=== PATIENT | female | born 1965 | race Caucasian/White ===

== ENCOUNTER → 2016-12-03 | Outpatient (CLI) | payer BC ==
--- NOTE | 2016-12-03 14:21 | MAMMOGRAPHY REPORT ---
UNILATERAL LEFT DIGITAL DIAGNOSTIC MAMMOGRAM TOMOSYNTHESIS WITH CAD AND TARGETED LEFT ULTRASOUND: CLINICAL HISTORY: Patient presents for follow-up in the left breast. She is status post surgical ex cision in the 11:00 left breast in which atypical ductal hyperplasia was diagnosed at core needle bi opsy. A second biopsy in the 9:00 left breast was benign. Patient also underwent bilateral breast MRI earlier today. TECHNIQUE: Left breast tomosynthesis in addition to standard 2D mammography was performed. Current fito agee was also evaluated with a Computer Aided Detection (CAD) system. COMPARISON: Comparison is made to exams dated: 05/27/2016 mammogram, 11/27/2015 mammogram, 05/24/2015 m ammogram, 05/18/2015 mammogram, and 11/25/2013 mammogram - [facility]. BREAST COMPOSITION: The tissue of the left breast is heterogeneously dense, which may obscure small masses. FINDINGS: There is expected focal architectural distortion in the 11:00 middle one third of the left breast, at the site of surgical excisional biopsy. A stable metallic biopsy marker is seen in the 9:00 middle one third of the left breast. There are stable benign rim calcifications and stable sca ttered and grouped benign-appearing round microcalcifications. No new suspicious mass, architectura l distortion or cluster of microcalcifications is seen. Targeted ultrasound was performed in the lower outer quadrant and upper inner quadrant of the right breast for findings seen on recent breast MRI. Please refer to a separate report for full detail. Within the right 12:00 breast, 2 cm from the nipple, there is a small cyst cluster measuring 4.8 x 9 .2 mm. A round anechoic simple cyst is identified in the 1:00 right breast measuring 4.5 mm. Anoth er anechoic oval parallel cyst is identified in the 9:00 right breast. An oval parallel circumscrib ed hypoechoic cystic-appearing mass is seen in the 7:00 right breast, 4 cm from the nipple, measurin g 7.4 x 3.3 x 6.6 mm. In anechoic simple cyst is present in the 7:00 right breast, 2 cm from the ni pple, measuring 5 mm. No suspicious sonographic mass or other sonographic abnormality is seen in th e visualized right breast to correlate with the MRI findings. Therefore, a short interval follow-up breast MRI is recommended to ensure stability in 6 months. Annual bilateral mammography is also du e at that time. IMPRESSION: ACR-BI-RADS CATEGORY 3: PROBABLY BENIGN, TARGETED ULTRASOUND ACR-BI-RADS CATEGORY 3: RI OBABLY BENIGN 1. There is no suspicious sonographic correlate for the MRI findings in the right lower outer and u pper inner quadrant. These findings could be within the range a background or represent benign fibr ocystic changes. Nevertheless, a short interval follow-up breast MRI is recommended to ensure stabi lity in 6 months. 2. Stable mammographic appearance of the left breast, without mammographic evidence of malignancy. Annual bilateral mammography is due in 6 months, and recommend remaining a diagnostic patient in ca se any additional spot magnification views and/or ultrasound are needed at that time. These results and recommendations were discussed with the patient at the time of the exam. She tent atively scheduled the follow-up appointments prior to leaving our department. Approximately 10% of breast cancers are not detected with mammography. A negative mammographic repor t should not delay biopsy if a clinically suggestive mass is present. Alva Noriega M.D. ay/:12/03/2016 13:56:31 Admissions Advisor: Celsa Cavazos RT(R)(M), [facility] letter sent: Follow Up Recommended 3 BI-RADS Code: ACR-BI-RADS Category 3: Probably Benign Ultrasound BI-RADS: ACR-BI-RADS Category 3: P robably Benign
== END | disposition home or self-care (01) ==
LOC: C.MAMM 09:56
PROVIDERS: ATTEND Surgery
DX: Z09 Encounter for follow-up examination after completed treatment for conditions other than malignant neoplasm (principal); N60.92 Unspecified benign mammary dysplasia of left breast

== ENCOUNTER → 2016-12-03 | Outpatient (CLI) | payer BC ==
[~2016-12-03] MED LIST: GADAVIST IV PRN
--- NOTE | 2016-12-05 14:17 | MAMMOGRAPHY REPORT ---
BREAST MRI OF BOTH BREASTS : 12/03/2016 CLINICAL HISTORY: 51-year-old woman with biopsy-proven left breast atypia status post surgical excis ion. She presents for additional screening. COMPARISON: Comparison is made to exams dated: 12/03/2016 ultrasound, 12/03/2016 mammogram, 05/27/2016 mammogram, 01/15/2016 mammogram, 01/15/2016 stereotactic biopsy, and 12/12/2015 mammogram - [facility]. TECHNIQUE: Using a 1.5 [place] magnet and dedicated breast coil, multisequence axial images were [place] through the breasts. After uneventful IV administration of 9 mL of Gadavist, dynamic multiphase contrast-enhanced axial images, and sagittal postcontrast were obtained. Temporal subtraction axia l images and 3-D MIP images are provided. Everything was then reviewed on a 3-D workstation, [email or web address]. FINDINGS: Right breast: There is moderate background parenchymal enhancement. There are several scattered T2 hyperintense cysts. Although there is diffuse background enhancement, there is conspicuous 4.2 x 5. 9 x 4.6 mm focus of enhancement in the lower outer anterior right breast with associated mixed persi stent, plateau and a small amount of washout kinetics. Corresponding T2-weighted sequence is isoint ense. Targeted ultrasound is recommended. Another conspicuous focus of enhancement is seen in the upper inner anterior right breast measuring 4.5 mm, with corresponding T2 isointensity. Mixed persi stent and plateau kinetics. Targeted ultrasound is also recommended in this location. No other con spicuous focus of enhancement, suspicious enhancing mass or architectural distortion is identified. There is no skin thickening or nipple retraction. No suspicious right axillary lymphadenopathy. Left breast: There is moderate background parenchymal enhancement. There are several scattered T2 h yperintense cysts. There is expected architectural distortion in the 11:00 left breast at the site of prior surgical excision for atypia diagnostic core needle biopsy. No conspicuous non-mass enhanc ement or focus of enhancement is identified throughout the left breast, given the degree of backgrou nd enhancement. No suspicious enhancing mass or unexpected architectural distortion is seen. No fo giancarlo skin thickening or nipple retraction. No left axillary lymphadenopathy. IMPRESSION: ACR-BI-RADS CATEGORY 3: PROBABLY BENIGN 1. There are 2 foci of enhancement that are increased in conspicuity from the moderate background e nhancement of the right breast, within the upper inner and lower outer quadrants, for which further characterization with targeted ultrasound is recommended. (This was subsequently performed during t he diagnostic mammogram/ultrasound on the same day and please refer to a separate report for full de tail). Subsequently, no suspicious sonographic abnormalities were identified to correspond to the M RI findings and therefore a short interval follow-up breast MRI is recommended. 2. Moderate background parenchymal enhancement of the left breast with stable postsurgical changes in the upper inner quadrant. No definite MRI evidence of malignancy within the left breast. 3. No suspicious axillary lymphadenopathy bilaterally. The patient has been verbally notified of the results. Alva Noriega M.D. ay/:12/04/2016 23:40:03 Engineer Sergeant: wood gouger, [facility] letter sent: Follow Up Recommended 3 BI-RADS Code: ACR-BI-RADS Category 3: Probably Benign
== END | disposition home or self-care (01) ==
LOC: C.MRI 07:34
PROVIDERS: ATTEND Surgery
DX: Z12.39 Encounter for other screening for malignant neoplasm of breast (principal); N60.92 Unspecified benign mammary dysplasia of left breast; N62 Hypertrophy of breast; Z98.890 Other specified postprocedural states

== ENCOUNTER → 2017-06-04 | Outpatient (CLI) | payer BC ==
--- NOTE | 2017-06-05 15:42 | MAMMOGRAPHY REPORT ---
BILATERAL DIGITAL DIAGNOSTIC MAMMOGRAM TOMOSYNTHESIS WITH CAD: 06/04/2017 CLINICAL HISTORY: 51-year-old woman with a personal history of left breast atypia diagnosed at needle biopsy status post surgical excisional biopsy. She presents for annual bilateral screening exam and concurrently reassessing findings on MRI. TECHNIQUE: Bilateral breast tomosynthesis in addition to standard 2D mammography was performed. Spot magnification left CC and ML views were also performed near the surgical site to assess for a small 3 mm triangular focus of enhancement seen on the MRI performed prior to this exam on the same day. C urrent study was also evaluated with a Computer Aided Detection (CAD) system. COMPARISON: Comparison is made to exams dated: 12/03/2016 mammogram, 05/27/2016 mammogram, 11/27/2015 m ammogram, 05/24/2015 mammogram, 05/18/2015 mammogram, and 11/25/2013 mammogram - [facility]. BREAST COMPOSITION: The tissue of both breasts is heterogeneously dense, which may obscure small mas ses. FINDINGS: There is expected architectural distortion in the 12:00 to 1:00 anterior left breast, at th e site of prior excisional biopsy. A linear scar marker overlies the 12:00 anterior left breast. Th ere are benign rim calcifications and punctate microcalcifications scattered bilaterally. With parti cular attention to the spot magnification views near the surgical site, there are stable benign-appea ring round and punctate microcalcifications. Grouped microcalcifications are seen slightly lateral a nd medial to the center of the distortion. These appear similar to prior spot magnification views. Currently no new suspicious grouping or cluster of microcalcifications are seen. Overall, no obvious new mass, unexpected architectural distortion or new calcifications are seen bilaterally. There is a circumscribed oval 10 x 7 mm mass in the middle one third of the right breast, just below the poste rior nipple line on the MLO view, which most likely correlates with a dominant cyst seen on concurren t MRI. IMPRESSION: ACR-BI-RADS CATEGORY 3: PROBABLY BENIGN 1. Stable mammographic appearance of the breasts, including postsurgical changes in the left breast. There is no definite mammographic evidence of malignancy. Would recommend bilateral mammography in cluding tomosynthesis images and repeat spot magnification views in 12 months. 2. A short interval follow-up breast MRI is recommended in 6 months, for new bilateral breast findin gs described on the MRI report performed on the same day. These results and recommendations were discussed with the patient at the time of the exam. Approximately 10% of breast cancers are not detected with mammography. A negative mammographic report should not delay biopsy if a clinically suggestive mass is present. Alva Noriega M.D. ay/:06/05/2017 15:04:36 Customs Collector: Celsa DELCID(Ling)(Rebecca), [facility] letter sent: Follow Up Recommended 3 BI-RADS Code: ACR-BI-RADS Category 3: Probably Benign
== END | disposition home or self-care (01) ==
LOC: C.MAMM 09:05
PROVIDERS: ATTEND Family Medicine
DX: Z12.31 Encounter for screening mammogram for malignant neoplasm of breast (principal); R92.8 Other abnormal and inconclusive findings on diagnostic imaging of breast

== ENCOUNTER → 2017-06-04 | Outpatient (CLI) | payer BC ==
--- NOTE | 2017-06-05 12:10 | MAMMOGRAPHY REPORT ---
BREAST MRI OF BOTH BREASTS : 06/04/2017 CLINICAL HISTORY: 51 year old woman with a personal history of left breast atypia presents to follow up enhancing foci in the right upper inner and lower outer quadrants. COMPARISON: Comparison is made to exams dated: 12/03/2016 ultrasound, 12/03/2016 mammogram, 12/03/2016 breast MRI, 05/27/2016 mammogram, 01/15/2016 mammogram, and 01/15/2016 stereotactic biopsy - [facility]. TECHNIQUE: Using a 1.5 [place]wyn magnet and dedicated breast coil, multisequence axial images were obtain ed through the breasts. After uneventful IV administration of 9.5 mL of Gadavist, dynamic multiphase contrast-enhanced axial images, and sagittal postcontrast were obtained. Temporal subtraction axial images and 3-D MIP images are provided. Everything was then reviewed on a 3-D workstation, [employer]. FINDINGS: Right breast: There is mild to moderate background parenchymal enhancement. There are several scatte red T2 hyperintense nonenhancing cysts in the right breast. The largest measuring 11 mm is identifie d in the central retroareolar breast. The previously described 0.6 mm focus of enhancement in the up per inner anterior right breast is decreased in size and conspicuity comparing to the prior MRI. It is currently identified on image 67/116 and measures 3.6 mm. The previously described 4.2 x 5.9 mm e nhancing focus in the lower outer quadrant of the right breast is no longer identified, confirming be nignity. However, the most conspicuous focus of enhancement in the right breast is identified in the 6:00 middle one third of the breast measuring 3.7 mm and demonstrates mixed plateau and washout kine tics (best seen on axial patient on 5/116). Given the fluctuation of the other enhancing foci, this is likely within the range of background. However, repeat attention at follow-up in 6 months is heriberto mmended to ensure stability. There is no evidence of a suspicious enhancing mass, suspicious non-mas s enhancement or focal area of architectural distortion in the right breast. No focal skin thickenin g or nipple retraction. No suspicious right axillary, subpectoral or internal mammary lymphadenopath y. Left breast: There is mild to moderate background parenchymal enhancement. There are several scatter ed T2 hyperintense nonenhancing cysts in the left breast. The largest cyst measuring 11 mm is identi fied in the 3:00 posterior left breast. There is expected architectural distortion from prior excisi onal biopsy in the 1:00 anterior left breast. There is a 3.1 mm triangular focus of enhancement with in the area of distortion that is minimally more conspicuous compared to the prior MRI. This is best seen on image 51/116 and demonstrates persistent kinetics. Although this probably represents backgr ound enhancement given differences in technique, additional spot magnification views are recommended to assess for the possibility of new microcalcifications near the surgical site. No other new suspic ious enhancing mass, non-mass enhancement or suspicious kinetics are identified in the left breast. No focal skin thickening or nipple retraction. No suspicious left axillary, subpectoral or internal mammary lymphadenopathy. IMPRESSION: ACR-BI-RADS CATEGORY 3: PROBABLY BENIGN 1. There are fluctuating enhancing foci in the right breast. The previously described conspicuous f oci in the upper inner quadrant, and lower outer quadrant are less prominent or completely resolved, confirming benignity. A 3.6 mm focus of enhancement currently seen in the 6:00 right breast is proba ronny within the range of background, but it demonstrates indeterminate kinetics. Therefore, a short i nterval follow-up breast MRI is recommended to ensure stability in 6 months. 2. There is expected architectural distortion in the 1:00 anterior left breast from prior surgical e xcision. There is a prominent 3 mm triangular focus of enhancement within the distortion that could be within the range of background, but it is minimally more conspicuous compared to the prior MRI. A dditional spot magnification views will be performed on the concurrent mammograms to assess for any n ew microcalcifications. If there is no mammographic change, a short interval follow-up breast MRI is recommended to ensure stability in 6 months. 3. No suspicious axillary, subpectoral or internal mammary lymphadenopathy bilaterally. These results and recommendations were discussed with the patient at the time of diagnostic mammogram performed on the same day. Alva Noriega M.D. ay/:06/04/2017 22:14:45 Olive Grower: supervisor loading, [facility] letter sent: Follow Up Recommended 3 BI-RADS Code: ACR-BI-RADS Category 3: Probably Benign
== END | disposition home or self-care (01) ==
LOC: C.MRI 06:39
PROVIDERS: ATTEND Family Medicine
DX: R92.8 Other abnormal and inconclusive findings on diagnostic imaging of breast (principal); Z12.39 Encounter for other screening for malignant neoplasm of breast

== ENCOUNTER → 2017-12-08 | Outpatient (CLI) | payer OTHER ==
--- NOTE | 2017-12-09 14:38 | MAMMOGRAPHY REPORT ---
BREAST MRI OF BOTH BREASTS : 12/08/2017 CLINICAL HISTORY: 52-year-old woman with a personal history of left breast atypia status post surgica l excision. A second stereotactic biopsy of microcalcifications in the left breast yielded benign pa thology results. Patient presents for a follow-up breast MRI to ensure stability of enhancing foci i n the right breast and near the surgical site in the left breast. COMPARISON: Comparison is made to exams dated: 06/04/2017 mammogram, 06/04/2017 breast MRI, 12/03/2016 ultrasound, 12/03/2016 mammogram, 12/03/2016 breast MRI, and 05/27/2016 mammogram - [facility]. TECHNIQUE: Using a 1.5 [place]wyn magnet and dedicated breast coil, multisequence axial images were obtain ed through the breasts. After uneventful IV administration of 9.5 mL of Gadavist, dynamic multiphase contrast-enhanced axial images, and sagittal postcontrast were obtained. Temporal subtraction axial images and 3-D MIP images are provided. Everything was then reviewed on a 3-D workstation, [employer]. FINDINGS: Right breast: There is mild background parenchymal enhancement of the right breast. There are diffus e fibrocystic changes of the right breast, with numerous scattered T2 hyperintense nonenhancing cysts that demonstrate a thin perceptible rim of enhancement. The largest oval cyst is identified in the middle one third of the retroareolar right breast measuring 11 mm (image 41/58). Foci of enhancement previously identified in the lower outer quadrant of the right breast are no longer seen, confirming benignity. A focus of enhancement in the upper inner anterior right breast appears stable when comp ared to the 06/04/2017 MRI but less prominent comparing to the 12/03/2016 MRI, also likely benign. A gain noted is a small focus of enhancement in the 6:00 middle one third of the right breast measuring 4.0 x 3.6 mm (axial page 96/122, sagittal page 105/132), that demonstrates mixed persistent, plateau and washout kinetics and does not appear visually changed since 06/04/2017. Prior measurements in t he same plane were 3.7 x 4.4 mm. Although this most likely represents a benign enhancing focus given 6 months of stability, it remains conspicuous and another 12 month follow-up breast MRI is recommend ed to ensure longer stability. No other new suspicious enhancing mass, non-mass enhancement, suspici ous kinetics or architectural distortion are identified in the right breast. No focal skin thickenin g or nipple retraction. No suspicious right axillary lymphadenopathy. Left breast: There is mild background parenchymal enhancement of the left breast. Diffuse fibrocysti c changes of the left breast with numerous T2 hyperintense, nonenhancing cysts. The largest cyst in the left breast is identified in the 3:00 posterior breast, measuring 9 mm. There is focal program architect ural distortion in the anterior left breast currently approximate 11 o'clock position. This was prev iously described as 12:00 and 1:00, based on prior mammograms and MRIs. There is no longer a triangu lar focus of enhancement in the area of architectural distortion, confirming the benignity of this fi nding. Currently, there is no suspicious enhancing mass, non-mass enhancement, unexpected architectu ral distortion or suspicious kinetics in the left breast. No focal skin thickening or nipple retract ion. No suspicious left axillary lymphadenopathy. Note is made of mild platelike atelectasis in the visualized dependent right lung. IMPRESSION: ACR-BI-RADS CATEGORY 3: PROBABLY BENIGN 1. No abnormal enhancement within an area of architectural distortion in the 11:00 anterior right br east, representing a surgical excisional biopsy performed for atypia diagnosed at stereotactic core n eedle biopsy. The interval resolution of this finding confirms benignity. No new suspicious enhanci ng mass or abnormal enhancement is identified in the left breast. 2. Persistent yet unchanged 3.6 x 4.0 mm focus of enhancement in the 6:00 right breast. Given 6 mon ths of stability this is most likely benign but another 12 month follow-up breast MRI is recommended to ensure longer stability. No other new suspicious enhancing masses or non-mass enhancement identif ied in the right breast. 3. Based on prior diagnostic mammogram reports, bilateral diagnostic mammograms are recommended in J braxton 2018. The patient will receive written notification of the results. Alva Noriega M.D. ay/:12/08/2017 21:16:57 Lead Care Manager: manager of photography, [facility] letter sent: Follow Up Recommended 3 BI-RADS Code: ACR-BI-RADS Category 3: Probably Benign
== END | disposition home or self-care (01) ==
LOC: C.MRI 06:31
PROVIDERS: ATTEND Surgery
DX: R92.8 Other abnormal and inconclusive findings on diagnostic imaging of breast (principal)

== ENCOUNTER → 2018-06-09 | Outpatient (CLI) | payer OTHER ==
--- NOTE | 2018-06-09 16:19 | MAMMOGRAPHY REPORT ---
BILATERAL DIGITAL DIAGNOSTIC MAMMOGRAM TOMOSYNTHESIS WITH CAD: 06/09/2018 CLINICAL HISTORY: 52-year-old woman with biopsy-proven atypia in the left breast, status post surgica l excision. A second stereotactic biopsy performed in the left breast yielded benign pathology result s. She presents at time of annual bilateral screening exam. TECHNIQUE: The study was acquired using full field digital technology and interpreted from soft copy. Breast tomosynthesis in addition to standard 2D mammography was performed. Current study was also ev aluated with a Computer Aided Detection (CAD) system. COMPARISON: Comparison is made to exams dated: 06/04/2017 mammogram, 12/03/2016 mammogram, 05/27/2016 m ammogram, 01/15/2016 mammogram, 12/12/2015 mammogram, and 11/27/2015 mammogram - [facility]. BREAST COMPOSITION: The tissue of both breasts is heterogeneously dense, which may obscure small mass es. FINDINGS: A linear scar marker overlies the upper outer quadrant of the left breast. There is expect ed architectural distortion at the surgical site in the approximate 11:00 left breast, denoting the s urgical excision site. There is a stable metallic biopsy marker clip in the medial left breast. Sca ttered benign rim calcifications and punctate microcalcifications bilaterally in addition to a few st able faint groupings of punctate microcalcifications. No new suspicious masses, suspicious calcifica tions, asymmetries or unexpected architectural distortion is identified bilaterally. Recommend bilateral diagnostic mammography in 12 months, given heterogeneously dense breasts, multipl e calcifications and personal history of atypia. Patient is also due for follow-up breast MRI in Nov. IMPRESSION: ACR BI-RADS CATEGORY 2: BENIGN 1. Stable bilateral mammograms including postsurgical and postbiopsy changes in the left breast, with out mammographic evidence of malignancy bilaterally. Recommend bilateral mammography in 12 months, a nd also recommend remaining a diagnostic patient in case any additional mammographic views and/or ult rasound may be needed, given the personal history of dense breast, numerous calcifications and atypia . 2. The patient is also due for a follow-up breast MRI in November 2018. These results and recommendations were discussed with the patient at the time of the exam. Some breast cancers are not detected with mammography. A negative mammographic report should not dulce y biopsy if a clinically suggestive mass is present. Alva Noriega M.D. ay/:06/09/2018 15:10:36 Open Source Developer: Felicia Romo, [facility] letter sent: Normal 1/2 BI-RADS Code: ACR BI-RADS Category 2: Benign
--- NOTE | 2018-06-18 14:41 | CODING QUERY NO DIAGNOSIS ---
TREATMENT RENDERED WITHOUT A DIAGNOSIS To promote full compliance with coding requirements relating to patient care, physician participation is requested in all cases of information coder uncertainty. Please assist us with providing a diagnosis/symptom for the test(s) below: A diagnosis/symptom was not documented on your Order. A valid diagnosis/symptom is required to bill all insurances. Please remember that we are unable to code a diagnosis of rule out, probable, possible, questionable, or suspected. Tests that require a diagnosis: DOS: 06/09/18 * Diagnostic Mammogram DIAGNOSIS: Provider Signature: Date: Thank you Lacy Funes Health Information Management Once completed, please kindly fax back to [phone] For questions please call [phone]
== END | disposition home or self-care (01) ==
LOC: C.MAMM 09:03
PROVIDERS: ATTEND Surgery
DX: R92.8 Other abnormal and inconclusive findings on diagnostic imaging of breast (principal); Z98.890 Other specified postprocedural states; Z87.898 Personal history of other specified conditions

== ENCOUNTER 2022-09-26 13:55 | Observation (INO) ==
[2022-09-26] MEDS ORDERED: SODIUM CHLORIDE 0.9% 1000ML 1,000 ML IV SCH (14:15)
[2022-09-26] MEDS ORDERED: OPTIRAY 320 500ml IV ONE (14:20)
--- NOTE | 2022-09-26 14:21 | CT Scan Report ---
HEAD CT NONCONTRAST CT DOSE: HISTORY: Memory loss. Visual disturbance. Stroke Like Symptoms TECHNIQUE: Multiaxial CT images of the head were performed without the use of intravenous contrast. A utomated exposure control was utilized for this study. A dose lowering technique was utilized adheri ng to the principles of ALARA. Comparison: None. Findings: The paranasal sinuses and mastoid air cells are clear. The calvarium and skull base are int act. The ventricles and sulci are within normal limits. There is no mass, hematoma, midline shift, or acute infarct. Moderate patchy periventricular white matter hypodensity is noted. This is nonspecifi c but appears greater than expected for age. Impression: 1. No acute infarct or intracranial hemorrhage. 2. Moderate patchy periventricular white matter hypodensity is noted. This is nonspecific but appears greater than expected for age. This could represent microvascular ischemic change, Lyme disease, kobe jaqueline, or a demyelinating disease. ACT 112: Negative or not required by law. Electronically signed by: Phillip Glez M.D. 09/26/2022 2:20 PM
--- NOTE | 2022-09-26 14:22 | CT Scan Report ---
CT ANGIOGRAM OF THE NECK CLINICAL HISTORY: Visual disturbance. Memory loss. Stroke like symptoms. COMPARISON STUDY: No priors. TECHNIQUE: Following the IV administration of 120 of Optiray 320, CT angiogram of the neck was perfor med from the aortic arch to the skull base. Images are reviewed in the axial, sagittal, and coronal p lanes. 3-D MIPS images are created and assessed. IV contrast was administered without complication. A ll measurements were calculated based on NASCET criteria. A dose lowering technique was utilized adh ering to the principles of ALARA. CT DOSE: 1139.80 mGy.cm FINDINGS: Thoracic aorta: Visualized portions of the thoracic aorta are normal in caliber. The aortic arch demo nstrates standard 3-vessel anatomy. Right carotid arterial system: The right common carotid artery is widely patent, as are the right int ernal and external carotid arteries. Calcified plaque is seen in the carotid bulb. Left carotid arterial system: The left common carotid artery is widely patent, as are the left internal communications specialist al and external carotid arteries. Vertebral arteries: The vertebral arteries are widely patent bilaterally and codominant. Subclavian arteries: Widely patent bilaterally. Intracranial vasculature: The visualized intracranial vessels at the skull base are patent. Jugular veins: Widely patent bilaterally. Brain parenchyma: The visualized brain parenchyma the skull base is within normal limits. Lung apices: Partially visualized upper lobe lung parenchyma appears clear. Soft tissues: The visualized pharyngeal soft tissues are normal in appearance noting angiographic pha se technique. The oropharyngeal airway appears widely patent. The salivary and thyroid glands are nor mal in appearance. No cervical lymphadenopathy is seen. Skeletal structures: The visualized calvarium at the skull base appears intact. The imaged cervical s pine is within normal limits. Sinuses and mastoids: The visualized paranasal sinuses are clear. The mastoid air cells are well pneu matized. IMPRESSION: Unremarkable CT angiogram of the neck. ACT 112: Negative or not required by law. Electronically signed by: Ramirez Price M.D. 09/26/2022 2:21 PM
--- NOTE | 2022-09-26 14:25 | CT Scan Report ---
CTA ANGIOGRAPHY OF THE HEAD CLINICAL HISTORY: Stroke Like Symptoms COMPARISON STUDY: No previous studies for comparison. TECHNIQUE: Helical axial images of the head were obtained following uneventful intravenous administr ation of 120 cc of Optiray. Sagittal and coronal reconstructions were viewed as well as maximal inten sity projections on an independent 3-D workstation. Automated exposure control was utilized for the study. A dose lowering technique was utilized adhering to the principles of ALARA. FINDINGS: Please note that the head CT will be reported separately. Brain volume is normal. Ventricul ar system is normal. Basal cisterns are patent. No acute intracranial hemorrhage is identified. White matter hypodensity suggests small vessel disease. The bilateral M2, A1 and A2 segments are patent. T here is no central vessel occlusion. The posterior circulation is intact. No intracranial hemorrhage is identified. This exam is mildly compromised due to venous opacification. Major dural sinuses are p atent. There is a small air-fluid level within the right sphenoid sinus. IMPRESSION: No central vessel occlusion. No intracranial aneurysm. ACT 112: Negative or not required by law. Electronically signed by: Luis F Mcginnis M.D. 09/26/2022 2:24 PM
[2022-09-26 14:33] LABS: Basophils # (auto) 0.03 K/uL (0-0.2); Basophils % (auto) 0.6 %; Eosinophils # (auto) 0.08 K/uL (0-0.50); Eosinophils % (auto) 1.5 %; Hematocrit (blood only) 37.6 % (34.1-44.9); Hemoglobin 12.5 g/dl (12.0-16.0); Immature Granulocytes # (auto) 0.01 K/uL (0.00-0.02); Immature Granulocytes % (auto) 0.2 %; Lymphocytes # (auto) 1.73 K/uL (1.2-3.4); Lymphocytes % (auto) 32.2 %; Mean Corpuscular Hemoglobin 30.7 pg (25.0-34.0); Mean Corpuscular Hgb Conc 33.2 g/dL (32.0-36.0); Mean Corpuscular Volume 92.4 fL (80.0-100.0); Mean Platelet Volume 10.8 fL (9.4-12.3); Monocytes # (auto) 0.49 K/uL (0.24-0.82); Monocytes % (auto) 9.1 %; Neutrophils # (auto) 3.03 K/uL (1.4-6.5); Neutrophils % (auto) 56.4 %; Platelet Count 210 K/uL (130-400); RDW Coefficient of Variation 13.2 % (11.5-14.5); RDW Standard Deviation 44.8 fL (36.4-46.3); Red Blood Count 4.07 M/uL (3.93-5.22); White Blood Count 5.37 K/ul (4.8-10.8)
[2022-09-26 14:35] LABS: iSTAT Creatinine 0.6 mg/dl (0.6-1.3); iSTAT Hemoglobin 11.9 g/dl (12.0-16.0); iSTAT Ionized Calcium 1.13 mmol/l (1.12-1.32); iSTAT Potassium 3.8 mmol/L (3.3-5.0)
[2022-09-26 14:46] LABS: Partial Thromboplastin Time 28.3 Seconds (21.0-31.0)
--- NOTE | 2022-09-26 14:54 | Emergency Department Note ---
Impression & Plan Stroke-like symptoms, Visual disturbance, Expressive aphasia ED Provider Note INFORMANT: Patient ED PROVIDER(S): Bienvenido Rodriguez MD CHIEF COMPLAINT: Strokelike symptoms PLAN: Disposition: Admitted Condition: Good Outpatient prescription management: none Referral: None MEDICAL DECISION MAKING: Patient presented to the emergency department because of strokelike symptoms. On arrival her symptoms were resolved. Stroke work-up was initiated and patient was taken emergently to CT imaging. CT scan of the head as well as CT angiography of the head and neck did not reveal any acute CVA or occlusion. Radiology questioned findings consistent with Lyme, migraine, demyelinating process. Patient has no history of those. Lyme testing was added. Patient notes that she does have a cat and has had ticks in the house. Patient's ECG showed a normal sinus rhythm at 86 bpm. Cardiac monitoring did not reveal any obvious dysrhythmia. CBC and chemistry panel were unremarkable. Consultation was made with [facility] service. Patient was evaluated in the admitted for further management. Triage Nursing notes reviewed and agree them. Vital Signs: reviewed and remarkable for no significant abnormalities Differential diagnosis: CVA, TIA infection, dehydration, metabolic abnormality, hypo/hyperglycemia, electrolyte disturbance, anemia, hypoxia, cardiac sources, intracerebral event, toxicologic, neurologic, as well as other pathologies. Diagnostics interpreted by me: EC Lead ECG performed and revealed Normal sinus rhythm at 86, normal Proctor, QRS normal. No elevation or depression. No PACs or PVCs Cardiac Monitoring: Cardiac monitoring ordered by me: The patient was placed on continuous cardiac monitoring and observed. It revealed a normal sinus rhythm at 84 beats per minute without ectopy or evidence of dysrhythmia. Imaging studies: CT scans as noted below HPI: The patient is a 56year old female who presents to the Emergency Room with complaints of strokelike symptoms. This started about 1 PM and is currently resolved. Patient states that she developed a visual disturbance in the right eye described as squiggly lines.. The patient also notes the following associated symptoms, inability to get her words out and slurred speech. Patient was concerned that she has a family history of TIA. The patient also notes that she had feelings that her heart rate was fluctuating over the last day or so. She did note having a resting heart rate at times to be in the mid 90s. She is unsure if the rhythm changed. The patient has took Advil for relieving fac tors. Current pain is rated as 0/10. Patient has no history of migraine and denies any developing headache. Pt denies LOC, headache, fevers, chills, diaphoresis, neck pain, chest pain, breathing difficulties, nausea, vomiting, abdominal pain, back pain, melena, hematochezia, urinary symptoms, numbness, weakness, lymphadenopathy, rash, or other complaints. ROS: See above HPI for pertinent positives & negatives. A total of 10 systems reviewed and were otherwise negative. PAST MEDICAL HISTORY:See Below , left meniscal tear PAST SURGICAL HISTORY:See Below, repair of meniscus FAMILY HISTORY:See Below SOCIAL HISTORY:See Below, HOME MEDICATIONS:See Below ALLERGIES:See Below VITALS:See Below PHYSICAL EXAMINATION: GENERAL: Awake, alert, mildly anxious-appearing, in no distress HENT: Normocephalic, atraumatic. Oropharynx unremarkable. EYES: Normal conjunctiva. Sclera non-icteric. PERRLA. EOMI. NECK: Inspection normal. Non-tender. Supple. No nuchal rigidity. FROM. No masses. RESPIRATORY: Clear to auscultation. No wheezes. No rales. Normal respiratory effort. CARDIAC: Normal rate. Normal rhythm. No murmurs. No rubs. Extremities warm and well perfused. Pulses equal. No JVD. GI: Soft, non-distended. No tenderness to palpation. No rebound or guarding. No masses. RECTAL: Deferred. MUSCULOSKELETAL: Atraumatic. Chest examination reveals no tenderness. The back is symmetrical on inspection without obvious abnormality. There is no CVA tenderness to palpation. No joint edema. LOWER EXTREMITIES: Calves are equal size bilaterally and non-tender. No edema. No discoloration. NEURO: Normal sensorium. No sensory or motor deficits noted. Cranial nerves II through XII intact. No drift. Normal rapid alternating movement. Normal [id number]. Speech normal. SKIN: No rash or jaundice noted. Bienvenido Rodriguez MD Past Med/Surg History Medical History Abnormal mammogram Allergic rhinitis Atypical ductal hyperplasia of breast Chronic low back pain Classic migraine with aura Dense breasts Diverticulosis of colon Esophageal reflux Ganglion cyst of right foot History of basal cell cancer Low back pain Lumbar facet joint syndrome Schwannoma of nerve of lower extremity Surgical History H/O arthroscopy of left knee S/P section S/P colonoscopy February 2017 repeat 10yrs S/P dilation and curettage S/P oophorectomy left Family History Mother Hypertension Dementia Stroke syndrome Grandmother Ovarian cancer Diabetes Grandfather Acute myocardial infarction Brother Hyperthyroidism Sister Hypothyroidism Social History Smoking Status: Former smoker Tobacco Type: Cigarettes Second Hand Exposure: No; Hx Alcohol Use: No Hx Substance Use: No Preferred Language: Jordanian Communication Ability: Effective Product Delivery Specialist Required: No Beliefs That Will Affect Care: None marital status: Current Living Situation: Spouse current occupational status: employed current occupation: [employer] How many Children do You have: 1 Other Information That Helps Us Care for You: No Feels Safe at Home: Yes Safety Concerns: Feels Safe At This Time Childhood Exposure to Second-Hand Smoke: Yes caffeine: Yes (coffee, tea) Dental Care, Regularly: Yes Physical Activity Frequency: 5-6 Times per Week Seatbelt Use: always Sunscreen Use: Yes Allergies Allergies Allergy/AdvReac Type Severity Reaction Status Date / Time No Known Drug Allergies Allergy Verified 02/19/22 14:47 Home Meds Home Medications Medication Instructions Recorded Confirmed No Known Home Medications 09/26/22 09/26/22 Results & Data (ED) Vital Signs Vital Signs - 24 hr 09/26/22 13:58 09/26/22 14:20 09/26/22 14:29 Temperature 36.6 C Temperature Source Temporal Artery Scan Pulse Rate 91 H Pulse Rate [Left Finger] 84 Pulse Rhythm [Left Finger] Pulse Strength [Left Finger] Respiratory Rate 18 23 Respiratory Effort / Characteristics Respiratory Depth Respiratory Pattern Blood Pressure 151/77 H Blood Pressure [Left Arm] 150/77 H Blood Pressure Mean 101 Blood Pressure Mean [Left Arm] 101 Blood Pressure Position [Left Arm] Sitting Pulse Oximetry 98 100 98 Oxygen Delivery Method Room Air Room Air Sepsis Recent Fever Within 48 Hours No Sepsis New/Unexplained Change in Mental Status N/A Sepsis Action Taken by Nursing No Action Required 09/26/22 15:05 Temperature Temperature Source Pulse Rate Pulse Rate [Left Finger] 81 Pulse Rhythm [Left Finger] Regular Pulse Strength [Left Finger] Normal Respiratory Rate 20 Respiratory Effort / Characteristics Non-Labored Spontaneous Respiratory Depth Normal Respiratory Pattern Regular Blood Pressure Blood Pressure [Left Arm] 151/74 H Blood Pressure Mean Blood Pressure Mean [Left Arm] 99 Blood Pressure Position [Left Arm] Sitting Pulse Oximetry 98 Oxygen Delivery Method Room Air Sepsis Recent Fever Within 48 Hours Sepsis New/Unexplained Change in Mental Status Sepsis Action Taken by Nursing Laboratory Data Result diagrams: 09/26/22 14:18 09/26/22 14:18 Lab Results 09/26/22 09/26/22 09/26/22 Range/Units 14:18 14:18 14:18 WBC 5.37 (4.8-10.8) K/ul RBC 4.07 (3.93-5.22) M/uL Hgb 12.5 (12.0-16.0) g/dl POC Hgb (12.0-16.0) g/dl Hct 37.6 (34.1-44.9) % POC Hct (37-47) % MCV 92.4 (80.0-100.0) fL MCH 30.7 (25.0-34.0) pg MCHC 33.2 (32.0-36.0) g/dL RDW Std Deviation 44.8 (36.4-46.3) fL RDW Coeff of Felecia 13.2 (11.5-14.5) % Plt Count 210 (130-400) K/uL MPV 10.8 (9.4-12.3) fL Immature Gran % (Auto) 0.2 % Neut % (Auto) 56.4 % Lymph % (Auto) 32.2 % Henry % (Auto) 9.1 % Eos % (Auto) 1.5 % Baso % (Auto) 0.6 % Neut # (Auto) 3.03 (1.4-6.5) K/uL Lymph # (Auto) 1.73 (1.2-3.4) K/uL Henry # (Auto) 0.49 (0.24-0.82) K/uL Eos # (Auto) 0.08 (0-0.50) K/uL Baso # (Auto) 0.03 (0-0.2) K/uL Immature Gran # (Auto) 0.01 (0.00-0.02) K/uL PT 11.0 (9.0-12.0) Seconds INR 1.0 (0.9-1.1) APTT 28.3 (21.0-31.0) Seconds PTT Ratio 1.0 POC Sodium (135-144) mmol/L Sodium (136-145) mmol/L POC Potassium (3.3-5.0) mmol/L Potassium (3.5-5.1) mmol/L POC Chloride (101-112) mmol/L Chloride (98-107) mmol/L Carbon Dioxide (21-32) mmol/L POC Total CO2 (24-31) mmol/L Anion Gap (3-11) POC Anion Gap (16-25) mmol/L POC BUN (7-18) mg/dl BUN (6-23) mg/dl Creatinine (0.6-1.2) mg/dl POC Creatinine (0.6-1.3) mg/dl Est Cr Clr Drug Dosing ml/min Est GFR ( Amer) ml/min Est GFR (Non-Af Amer) ml/min BUN/Creatinine Ratio (10-20) Glucose (70-99(Fasting)) mg/dl POC Glucose (other) (70-99) mg/dl Calcium (8.5-10.1) mg/dl POC Ioniz Calcium Teofilo (1.12-1.32) mmol/l Magnesium (1.7-2.4) mg/dl Total Bilirubin (0.2-1.0) mg/dl AST (13-39) U/L ALT (7-52) U/L Alkaline Phosphatase (34-104) U/L Troponin I High Sens (0-14) pg/ml Total Protein (6.0-8.3) gm/dl Albumin (3.4-5.0) gm/dl Globulin (2.5-4.0) gm/dl Albumin/Globulin Ratio (0.9-2) Urine Color Urine Appearance (Clear) Urine pH (4.5-7.5) Ur Specific [place] (1.000-1.030) Urine Protein (Negative) Urine Glucose (UA) (Negative) Urine Ketones (Negative) Urine Blood (Negative) Urine Nitrite (Negative) Urine Bilirubin (Negative) Urine Urobilinogen (Negative) Ur Leukocyte Esterase (Negative) Urine WBC (Auto) (0-5) /hpf Urine RBC (Auto) (0-4) /hpf U Hyaline Cast (Auto) (0-5) /lpf U Epithel Cells (Auto) (0-5) /lpf Urine Bacteria (Auto) (Negative) Lyme Disease IgG Ab (Negative) Lyme Disease IgM Ab (Negative) SARS-CoV-2, RNA, NAAT (NEGATIVE) Blood Type O Negative Antibody Screen NEGATIVE 09/26/22 09/26/22 09/26/22 Range/Units 14:18 14:18 14:22 WBC (4.8-10.8) K/ul RBC (3.93-5.22) M/uL Hgb (12.0-16.0) g/dl POC Hgb 11.9 L (12.0-16.0) g/dl Hct (34.1-44.9) % POC Hct 35 L (37-47) % MCV (80.0-100.0) fL MCH (25.0-34.0) pg MCHC (32.0-36.0) g/dL RDW Std Deviation (36.4-46.3) fL RDW Coeff of Felecia (11.5-14.5) % Plt Count (130-400) K/uL MPV (9.4-12.3) fL Immature Gran % (Auto) % Neut % (Auto) % Lymph % (Auto) % Henry % (Auto) % Eos % (Auto) % Baso % (Auto) % Neut # (Auto) (1.4-6.5) K/uL Lymph # (Auto) (1.2-3.4) K/uL Henry # (Auto) (0.24-0.82) K/uL Eos # (Auto) (0-0.50) K/uL Baso # (Auto) (0-0.2) K/uL Immature Gran # (Auto) (0.00-0.02) K/uL PT (9.0-12.0) Seconds INR (0.9-1.1) APTT (21.0-31.0) Seconds PTT Ratio POC Sodium 138 (135-144) mmol/L Sodium 138 (136-145) mmol/L POC Potassium 3.8 (3.3-5.0) mmol/L Potassium 3.8 (3.5-5.1) mmol/L POC Chloride 103 (101-112) mmol/L Chloride 106 (98-107) mmol/L Carbon Dioxide 28 (21-32) mmol/L POC Total CO2 26 (24-31) mmol/L Anion Gap 4 (3-11) POC Anion Gap 14.0 L (16-25) mmol/L POC BUN 15 (7-18) mg/dl BUN 15 (6-23) mg/dl Creatinine 0.60 (0.6-1.2) mg/dl POC Creatinine 0.6 (0.6-1.3) mg/dl Est Cr Clr Drug Dosing 115.9 ml/min Est GFR ( Amer) 116.4 ml/min Est GFR (Non-Af Amer) 100.5 ml/min BUN/Creatinine Ratio 25.0 H (10-20) Glucose 100 H (70-99(Fasting)) mg/dl POC Glucose (other) 98 (70-99) mg/dl Calcium 8.9 (8.5-10.1) mg/dl POC Ioniz Calcium Teofilo 1.13 (1.12-1.32) mmol/l Magnesium 1.7 (1.7-2.4) mg/dl Total Bilirubin 0.5 (0.2-1.0) mg/dl AST 14 (13-39) U/L ALT 16 (7-52) U/L Alkaline Phosphatase 60 (34-104) U/L Troponin I High Sens 4.8 (0-14) pg/ml Total Protein 6.2 (6.0-8.3) gm/dl Albumin 4.0 (3.4-5.0) gm/dl Globulin 2.2 L (2.5-4.0) gm/dl Albumin/Globulin Ratio 1.8 (0.9-2) Urine Color Urine Appearance (Clear) Urine pH (4.5-7.5) Ur Specific [place] (1.000-1.030) Urine Protein (Negative) Urine Glucose (UA) (Negative) Urine Ketones (Negative) Urine Blood (Negative) Urine Nitrite (Negative) Urine Bilirubin (Negative) Urine Urobilinogen (Negative) Ur Leukocyte Esterase (Negative) Urine WBC (Auto) (0-5) /hpf Urine RBC (Auto) (0-4) /hpf U Hyaline Cast (Auto) (0-5) /lpf U Epithel Cells (Auto) (0-5) /lpf Urine Bacteria (Auto) (Negative) Lyme Disease IgG Ab Negative (Negative) Lyme Disease IgM Ab Negative (Negative) SARS-CoV-2, RNA, NAAT (NEGATIVE) Blood Type Antibody Screen 09/26/22 09/26/22 Range/Units 14:36 15:00 WBC (4.8-10.8) K/ul RBC (3.93-5.22) M/uL Hgb (12.0-16.0) g/dl POC Hgb (12.0-16.0) g/dl Hct (34.1-44.9) % POC Hct (37-47) % MCV (80.0-100.0) fL MCH (25.0-34.0) pg MCHC (32.0-36.0) g/dL RDW Std Deviation (36.4-46.3) fL RDW Coeff of Felecia (11.5-14.5) % Plt Count (130-400) K/uL MPV (9.4-12.3) fL Immature Gran % (Auto) % Neut % (Auto) % Lymph % (Auto) % Henry % (Auto) % Eos % (Auto) % Baso % (Auto) % Neut # (Auto) (1.4-6.5) K/uL Lymph # (Auto) (1.2-3.4) K/uL Henry # (Auto) (0.24-0.82) K/uL Eos # (Auto) (0-0.50) K/uL Baso # (Auto) (0-0.2) K/uL Immature Gran # (Auto) (0.00-0.02) K/uL PT (9.0-12.0) Seconds INR (0.9-1.1) APTT (21.0-31.0) Seconds PTT Ratio POC Sodium (135-144) mmol/L Sodium (136-145) mmol/L POC Potassium (3.3-5.0) mmol/L Potassium (3.5-5.1) mmol/L POC Chloride (101-112) mmol/L Chloride (98-107) mmol/L Carbon Dioxide (21-32) mmol/L POC Total CO2 (24-31) mmol/L Anion Gap (3-11) POC Anion Gap (16-25) mmol/L POC BUN (7-18) mg/dl BUN (6-23) mg/dl Creatinine (0.6-1.2) mg/dl POC Creatinine (0.6-1.3) mg/dl Est Cr Clr Drug Dosing ml/min Est GFR ( Amer) ml/min Est GFR (Non-Af Amer) ml/min BUN/Creatinine Ratio (10-20) Glucose (70-99(Fasting)) mg/dl POC Glucose (other) (70-99) mg/dl Calcium (8.5-10.1) mg/dl POC Ioniz Calcium Teofilo (1.12-1.32) mmol/l Magnesium (1.7-2.4) mg/dl Total Bilirubin (0.2-1.0) mg/dl AST (13-39) U/L ALT (7-52) U/L Alkaline Phosphatase (34-104) U/L Troponin I High Sens (0-14) pg/ml Total Protein (6.0-8.3) gm/dl Albumin (3.4-5.0) gm/dl Globulin (2.5-4.0) gm/dl Albumin/Globulin Ratio (0.9-2) Urine Color Yellow Urine Appearance Clear (Clear) Urine pH 7.0 (4.5-7.5) Ur Specific [place] > 1.045 H (1.000-1.030) Urine Protein Negative (Negative) Urine Glucose (UA) Negative (Negative) Urine Ketones Negative (Negative) Urine Blood Negative (Negative) Urine Nitrite Negative (Negative) Urine Bilirubin Negative (Negative) Urine Urobilinogen Negative (Negative) Ur Leukocyte Esterase Trace H (Negative) Urine WBC (Auto) 1-5 (0-5) /hpf Urine RBC (Auto) 0-4 (0-4) /hpf U Hyaline Cast (Auto) 1-5 (0-5) /lpf U Epithel Cells (Auto) 5-10 H (0-5) /lpf Urine Bacteria (Auto) Negative (Negative) Lyme Disease IgG Ab (Negative) Lyme Disease IgM Ab (Negative) SARS-CoV-2, RNA, NAAT NEGATIVE (NEGATIVE) Blood Type Antibody Screen Administered Medications Sodium Chloride (Nss 1000ml) 1,000 mls @ 50 mls/hr IV .Q20H BRYAN Stop: 10/26/22 14:14 Last Admin: 09/26/22 14:33 Dose: 50 mls/hr Documented By: LAUREN Discontinued Medications Ioversol (Optiray 320 500ml) 120 ml IV ONCE ONE Stop: 09/26/22 14:21 Last Admin: 09/26/22 14:10 Dose: 120 ml Documented By: CECE Imaging Data Radiologist's Impression: Chest X-Ray 09/26/22 14:03 XR chest 1V portable CLINICAL HISTORY: Stroke Like Symptoms TECHNIQUE: Single frontal radiograph of the chest was obtained. Comparison: None available at the time of this dictation. FINDINGS: No lines and tubes are seen. Cardiomegaly is noted. The lungs are clear. No evidence of pleural effusion or pneumothorax. IMPRESSION: No acute chest disease. Cardiomegaly is noted. ACT 112: Negative or not required by law. Electronically signed by: Al Jernigan M.D. 09/26/2022 3:[address] 09/26/22 14:[address] DOSE: HISTORY: Memory loss. Visual disturbance. Stroke Like Symptoms TECHNIQUE: Multiaxial CT images of the head were performed without the use of intravenous contrast. Automated exposure control was utilized for this study. A dose lowering technique was utilized adhering to the principles of ALARA. Comparison: None. Findings: The paranasal sinuses and mastoid air cells are clear. The calvarium and skull base are intact. The ventricles and sulci are within normal limits. There is no mass, hematoma, midline shift, or acute infarct. Moderate patchy periventricular white matter hypodensity is noted. This is nonspecific but appears greater than expected for age. Impression: 1. No acute infarct or intracranial hemorrhage. 2. Moderate patchy periventricular white matter hypodensity is noted. This is nonspecific but appears greater than expected for age. This could represent microvascular ischemic change, Lyme disease, migraines, or a demyelinating disease. ACT 112: Negative or not required by law. Electronically signed by: Phillip Glez M.D. 09/26/2022 2:20 PM Head CTA 09/26/22 14:03 CTA ANGIOGRAPHY OF THE HEAD CLINICAL HISTORY: Stroke Like Symptoms COMPARISON STUDY: No previous studies for comparison. TECHNIQUE: Helical axial images of the head were obtained following uneventful intravenous administration of 120 cc of Optiray. Sagittal and coronal reconstructions were viewed as well as maximal intensity projections on an independent 3-D workstation. Automated exposure control was utilized for the study. A dose lowering technique was utilized adhering to the principles of ALARA. FINDINGS: Please note that the head CT will be reported separately. Brain volume is normal. Ventricular system is normal. Basal cisterns are patent. No acute intracranial hemorrhage is identified. White matter hypodensity suggests small vessel disease. The bilateral M2, A1 and A2 segments are patent. There is no central vessel occlusion. The posterior circulation is intact. No intracranial hemorrhage is identified. This exam is mildly compromised due to venous opacification. Major dural sinuses are patent. There is a small air-fluid level within the right sphenoid sinus. IMPRESSION: No central vessel occlusion. No intracranial aneurysm. ACT 112: Negative or not required by law. Electronically signed by: Luis F Mcginnis M.D. 09/26/2022 2:24 PM Neck CTA 09/26/22 14:03 CT ANGIOGRAM OF THE NECK CLINICAL HISTORY: Visual disturbance. Memory loss. Stroke like symptoms. COMPARISON STUDY: No priors. TECHNIQUE: Following the IV administration of 120 of Optiray 320, CT angiogram of the neck was performed from the aortic arch to the skull base. Images are reviewed in the axial, sagittal, and coronal planes. 3-D MIPS images are created and assessed. IV contrast was administered without complication. All measurements were calculated based on NASCET criteria. A dose lowering technique was utilized adhering to the principles of ALARA. CT DOSE: 1139.80 mGy.cm FINDINGS: Thoracic aorta: Visualized portions of the thoracic aorta are normal in caliber. The aortic arch demonstrates standard 3-vessel anatomy. Right carotid arterial system: The right common carotid artery is widely patent, as are the right internal and external carotid arteries. Calcified plaque is seen in the carotid bulb. Left carotid arterial system: The left common carotid artery is widely patent, as are the left internal and external carotid arteries. Vertebral arteries: The vertebral arteries are widely patent bilaterally and codominant. Subclavian arteries: Widely patent bilaterally. Intracranial vasculature: The visualized intracranial vessels at the skull base are patent. Jugular veins: Widely patent bilaterally. Brain parenchyma: The visualized brain parenchyma the skull base is within normal limits. Lung apices: Partially visualized upper lobe lung parenchyma appears clear. Soft tissues: The visualized pharyngeal soft tissues are normal in appearance noting angiographic phase technique. The oropharyngeal airway appears widely patent. The salivary and thyroid glands are normal in appearance. No cervical lymphadenopathy is seen. Skeletal structures: The visualized calvarium at the skull base appears intact. The imaged cervical spine is within normal limits. Sinuses and mastoids: The visualized paranasal sinuses are clear. The mastoid air cells are well pneumatized. IMPRESSION: Unremarkable CT angiogram of the neck. ACT 112: Negative or not required by law. Electronically signed by: Ramirez Price M.D. 09/26/2022 2:21 PM Discharge Plan Visit Data Chief Complaint: Stroke/CVA Symptoms Stated Complaint: SPEECH PROBLEMS, VISION PROBLEMS, CONFUSED ED Provider: Bienvenido Rodriguez Discharge Problem: Stroke-like symptoms, Visual disturbance, Expressive aphasia Patient Disposition: Admitted As Inpatient Discharge Instructions Interventions: ED Discharge Assessment Last Done: 09/26/22 16:34
[2022-09-26 15:01] LABS: Troponin I High Sensitivity 4.8 pg/ml (0-14)
[2022-09-26 15:13] LABS: Albumin Globulin Ratio 1.8 (0.9-2); Bilirubin,Total 0.5 mg/dl (0.2-1.0); Calcium 8.9 mg/dl (8.5-10.1); Creatinine Clr Calc Pharmacy 115.9 ml/min; Est GFR (African American) 116.4 ml/min; Est GFR (Non-African American) 100.5 ml/min; Globulin 2.2 gm/dl (2.5-4.0); Magnesium 1.7 mg/dl (1.7-2.4); Potassium 3.8 mmol/L (3.5-5.1); Total Protein 6.2 gm/dl (6.0-8.3)
[2022-09-26 15:17] LABS: Appearance Urine Clear (Clear); Bacteria Urine Automated Negative (Negative); Bilirubin Urine Negative (Negative); Blood Urine Negative (Negative); Color Urine Yellow; Glucose Urine UA Negative (Negative); Ketones Urine Negative (Negative); Leukocyte Esterase Urine Trace (Negative); Nitrite Urine Negative (Negative); Protein Urine Negative (Negative); RBC Urine Automated 0-4 /hpf (0-4); Specific Gravity Urine > 1.045 (1.000-1.030); Urobilinogen Urine Negative (Negative)
--- NOTE | 2022-09-26 15:17 | History & Physical Report ---
Date of Service September 26, 2022 Assessment & Plan (1) Stroke-like symptoms: Plan: - Ddx includes TIA vs migraine headache - Symptom onset 1 PM, resolved within 1 hour prior to ED eval. - Took several Advil pills upon onset of symptoms.. - Head CT: * No acute hemorrhage or ischemic changes * Moderate patchy periventricular white matter hypodensity is noted. This is nonspecific but appears greater than expected for age. This could represent microvascular ischemic change, Lyme disease, migraines, or a demyelinating disease. - Head/neck CTA unremarkable. - Lyme negative. - MRI ordered. - Echo in a.m. - CBC, BMP, HbA1c, lipid panel in a.m. - PT, OT, ST to evaluate in a.m. -Telemetry for 24 hours, evaluate for episodes of atrial fibrillation. (2) Chronic low back pain: Plan: - L3 nerve sheath tumor/schwannoma. Follows with [facility]. (3) Allergic rhinitis: Plan: - OTC medications prn. Plan - Admit to med telemetry. - SCDs for VTE PPx. - Full code. History of Present Illness Chief Complaint: visual changes, speech difficulties x 1 hour now resolved Primary Care Provider: Raquel Smith MD Gauri Nice is a 56-year-old female with past medical history significant for migraine headaches, chronic low back pain, allergic rhinitis, GERD who presents today as a stroke alert. 1 hour prior to arrival around 1 PM she was eating lunch when she had onset of palpitations and saw a right squiggly line through her right eye. She also has difficulty speaking and could not remember her home address or the names of her coworkers. She does not have any motor or sensory deficits, no difficulty with ambulation, no headache, nausea, or vomiting. She has a distant history of migraine headaches several years ago that presented similarly with a squiggly line in her vision, therefore she took several Advil pills to prevent headache from coming on. She also notes over the past 2 days after eating she had temporary episode of feeling like her heart was racing. Prior to arrival in the ED, her symptoms have resolved and she is back to baseline. She denies a history of strokes, but does have a history of migraines and a family history of stroke. She was seen by her PCP several months ago for palpitations, or an event monitor which did not reveal arrhythmia. In the past she was prescribed triptans for migraine prevention, however never required these as the migraines were an isolated incident have not recurred since then several years. Upon presentation to ED, she is moderately hypertensive 151/77, HR 91, otherwise vital signs within normal limits. Head CT does not show evidence of acute infarct or hemorrhage, there is moderate patchy periventricular white matter hypodensity noted which is greater than expected given her age, possibly representing microvascular ischemic change, Lyme disease, migraines, or demyelinating disease. Head and neck CTA unremarkable. Labs largely unrevealing Allergies Allergy/AdvReac Type Severity Reaction Status Date / Time No Known Drug Allergies Allergy Verified 02/19/22 14:47 Home Medications Medication Instructions Recorded Confirmed Type No Known Home Medications 09/26/22 09/26/22 History Past Med/Surg History Medical History Abnormal mammogram Allergic rhinitis Atypical ductal hyperplasia of breast Chronic low back pain Classic migraine with aura Dense breasts Diverticulosis of colon Esophageal reflux Ganglion cyst of right foot History of basal cell cancer Low back pain Lumbar facet joint syndrome Schwannoma of nerve of lower extremity Surgical History H/O arthroscopy of left knee S/P section S/P colonoscopy February 2017 repeat 10yrs S/P dilation and curettage S/P oophorectomy left Family History Mother Hypertension Dementia Stroke syndrome Grandmother Ovarian cancer Diabetes Grandfather Acute myocardial infarction Brother Hyperthyroidism Sister Hypothyroidism Social History Smoking Status: Former smoker Tobacco Type: Cigarettes Second Hand Exposure: No; Hx Alcohol Use: No Hx Substance Use: No Preferred Language: Amharic Communication Ability: Effective Cathead Operator Required: No Beliefs That Will Affect Care: None marital status: Current Living Situation: Spouse current occupational status: employed current occupation: [employer] How many Children do You have: 1 Other Information That Helps Us Care for You: No Feels Safe at Home: Yes Safety Concerns: Feels Safe At This Time Childhood Exposure to Second-Hand Smoke: Yes caffeine: Yes (coffee, tea) Dental Care, Regularly: Yes Physical Activity Frequency: 5-6 Times per Week Seatbelt Use: always Sunscreen Use: Yes Review of Systems Review of Systems: Constitutional: No fever/chills, weakness, fatigue, myalgias, anorexia, night sweats Eyes: right eye with moving lines in visual fielsd x 1 hour; No diplopia, no worsening or blurred vision ENT: normal hearing, no trouble swallowing Respiratory: No cough, sputum, dyspnea at rest or on exertion Cardiovascular: No chest pain, tightness or palpitations Abdomen: No pain, nausea, vomiting, diarrhea or constipation : Denies dysuria, hematuria, increased urgency/frequency, urinary retention Musculoskeletal: No joint pain, calf pain, swelling Neurologic: 1 hour of right visual field artifact, impaired mcfp memory, delayed speech; No weakness, numbness/tingling, or balance problems Psychiatric: No anxiety or depression Skin: No rash or itch Physical Exam Physical Exam: Physical exam: General: awake, alert, no apparent distress Head: Normocephalic, atraumatic ENT: PERRL, EOMI, no pharyngeal exudate, mucous membranes moist Chest: Clear to auscultation, on room air, no adventitious breath sounds Cardiac: Regular rate and rhythm, no murmur, no JVD, normal peripheral pulses, good capillary refill Abdominal: NABS x 4 quadrants, soft, nontender to palpation, no rebound, guarding or tenderness Extremities: Normal inspection, no peripheral edema or erythema, calfs nontender to palpation Psych: Normal mood and affect Neuro: AAO x 3, strength intact bilaterally and rated 5/5, no motor deficits, speech is clear, no peripheral sensory deficits Skin: no rash or erythema Results & Data Results & Data ([facility]) Vital Signs (Past 12 Hours) Vital Signs Temp Pulse Pulse Resp BP BP Pulse Ox 09/26/22 15:05 81 20 151/74 H 98 09/26/22 14:29 84 23 150/77 H 98 09/26/22 14:20 100 09/26/22 13:58 36.6 C 91 H 18 151/77 H 98 O2 Del Method 09/26/22 15:05 Room Air 09/26/22 14:29 09/26/22 14:20 Room Air 09/26/22 13:58 Room Air Laboratory Results Abnormal lab results 09/26/22 09/26/22 09/26/22 Range/Units 14:18 14:22 15:00 POC Hgb 11.9 L (12.0-16.0) g/dl POC Hct 35 L (37-47) % POC Anion Gap 14.0 L (16-25) mmol/L BUN/Creatinine Ratio 25.0 H (10-20) Glucose 100 H (70-99(Fasting)) mg/dl Globulin 2.2 L (2.5-4.0) gm/dl Ur Specific [place] > 1.045 H (1.000-1.030) Ur Leukocyte Esterase Trace H (Negative) U Epithel Cells (Auto) 5-10 H (0-5) /lpf Diagnostic Findings Head CT 09/26/22 14:[address] DOSE: HISTORY: Memory loss. Visual disturbance. Stroke Like Symptoms TECHNIQUE: Multiaxial CT images of the head were performed without the use of intravenous contrast. Automated exposure control was utilized for this study. A dose lowering technique was utilized adhering to the principles of ALARA. Comparison: None. Findings: The paranasal sinuses and mastoid air cells are clear. The calvarium and skull base are intact. The ventricles and sulci are within normal limits. There is no mass, hematoma, midline shift, or acute infarct. Moderate patchy periventricular white matter hypodensity is noted. This is nonspecific but appears greater than expected for age. Impression: 1. No acute infarct or intracranial hemorrhage. 2. Moderate patchy periventricular white matter hypodensity is noted. This is nonspecific but appears greater than expected for age. This could represent microvascular ischemic change, Lyme disease, migraines, or a demyelinating disease. ACT 112: Negative or not required by law. Electronically signed by: Phillip Glez M.D. 09/26/2022 2:20 PM Head CTA 09/26/22 14:03 CTA ANGIOGRAPHY OF THE HEAD CLINICAL HISTORY: Stroke Like Symptoms COMPARISON STUDY: No previous studies for comparison. TECHNIQUE: Helical axial images of the head were obtained following uneventful intravenous administration of 120 cc of Optiray. Sagittal and coronal reconstructions were viewed as well as maximal intensity projections on an independent 3-D workstation. Automated exposure control was utilized for the study. A dose lowering technique was utilized adhering to the principles of ALARA. FINDINGS: Please note that the head CT will be reported separately. Brain volume is normal. Ventricular system is normal. Basal cisterns are patent. No acute intracranial hemorrhage is identified. White matter hypodensity suggests small vessel disease. The bilateral M2, A1 and A2 segments are patent. There is no central vessel occlusion. The posterior circulation is intact. No intracranial hemorrhage is identified. This exam is mildly compromised due to venous opacification. Major dural sinuses are patent. There is a small air-fluid level within the right sphenoid sinus. IMPRESSION: No central vessel occlusion. No intracranial aneurysm. ACT 112: Negative or not required by law. Electronically signed by: Luis F Mcginnis M.D. 09/26/2022 2:24 PM Neck CTA 09/26/22 14:03 CT ANGIOGRAM OF THE NECK CLINICAL HISTORY: Visual disturbance. Memory loss. Stroke like symptoms. COMPARISON STUDY: No priors. TECHNIQUE: Following the IV administration of 120 of Optiray 320, CT angiogram of the neck was performed from the aortic arch to the skull base. Images are reviewed in the axial, sagittal, and coronal planes. 3-D MIPS images are created and assessed. IV contrast was administered without complication. All measurements were calculated based on NASCET criteria. A dose lowering technique was utilized adhering to the principles of ALARA. CT DOSE: 1139.80 mGy.cm FINDINGS: Thoracic aorta: Visualized portions of the thoracic aorta are normal in caliber. The aortic arch demonstrates standard 3-vessel anatomy. Right carotid arterial system: The right common carotid artery is widely patent, as are the right internal and external carotid arteries. Calcified plaque is seen in the carotid bulb. Left carotid arterial system: The left common carotid artery is widely patent, as are the left internal and external carotid arteries. Vertebral arteries: The vertebral arteries are widely patent bilaterally and codominant. Subclavian arteries: Widely patent bilaterally. Intracranial vasculature: The visualized intracranial vessels at the skull base are patent. Jugular veins: Widely patent bilaterally. Brain parenchyma: The visualized brain parenchyma the skull base is within normal limits. Lung apices: Partially visualized upper lobe lung parenchyma appears clear. Soft tissues: The visualized pharyngeal soft tissues are normal in appearance noting angiographic phase technique. The oropharyngeal airway appears widely patent. The salivary and thyroid glands are normal in appearance. No cervical lymphadenopathy is seen. Skeletal structures: The visualized calvarium at the skull base appears intact. The imaged cervical spine is within normal limits. Sinuses and mastoids: The visualized paranasal sinuses are clear. The mastoid air cells are well pneumatized. IMPRESSION: Unremarkable CT angiogram of the neck. ACT 112: Negative or not required by law. Electronically signed by: Ramirez Price M.D. 09/26/2022 2:21 PM ECG Additional Comments: Normal sinus rhythm Normal ECG No previous ECGs available. Code Status & VTE Plan Code Status Full Code. Supervising Physician Co-Signing Physician Notes Patient seen and examined, chart reviewed, case discussed with Katy Fagan PA-C and I agree with the assessment and plan as above except as otherwise noted Labs and images reviewed 56-year-old female with no prior stroke/CVA history who presented with onset of palpitations and right eye vision change with expressive dysarthria. No numbness, weakness, facial droop. Improving ER assessment, TNKase not indicated. CT without evidence of acute stroke,? Small vessel disease. CTA of the head and neck without acute findings. MRI pending. Statin/aspirin recomme nded, additional adjustments pending overnight stroke eval. Agree with management above. At bedside assessment patient speech is fluent, vision is grossly intact, and does not have upper or lower extremity sensory or strength deficits. No chest pain although does endorse episodes of heart racing prior to onset of her strokelike symptoms. Echo pending, continued on telemetry. At time of assessment is in sinus rhythm. PG Care Time/CCT Total # of Minutes Spent Total Time Spent with Patient: Total time spent is greater than 50% in coordination of care (as documented) at patient's floor/unit and/or counseling patient: Coding Level of Care Code 09551 Initial Inpt Care Lvl 3 Diagnoses Stroke-like symptoms R29.90 Chronic low back pain M54.5; G89.29 Allergic rhinitis J30.9
[2022-09-26 15:24] LABS: Lyme Ab IgG w/WB Rflx Negative (Negative); Lyme Ab IgM w/WB Rflx Negative (Negative)
--- NOTE | 2022-09-26 15:38 | XRay Report ---
XR chest 1V portable CLINICAL HISTORY: Stroke Like Symptoms TECHNIQUE: Single frontal radiograph of the chest was obtained. Comparison: None available at the time of this dictation. FINDINGS: No lines and tubes are seen. Cardiomegaly is noted. The lungs are clear. No evidence of pleural effus ion or pneumothorax. IMPRESSION: No acute chest disease. Cardiomegaly is noted. ACT 112: Negative or not required by law. Electronically signed by: Al Jernigan M.D. 09/26/2022 3:36 PM
[2022-09-26] MEDS ORDERED: ACETAMINOPHEN 325 MG TAB PO PRN (17:05)
[2022-09-26] MEDS ORDERED: POLYETHYLENE (MIRALAX) 17 GM PACK PO PRN (17:05)
[2022-09-26] MEDS ORDERED: PHARMACIST DISCHARGE MED REC CONSULT PRN (17:05)
[2022-09-26] MEDS ORDERED: ONDANSETRON INJ 2 MG/ML 2 ML VIAL IV PRN (17:05)
[2022-09-26] MEDS ORDERED: ALUMINUM/MAGNESIUM SUSP 30 ML UDC PO PRN (17:05)
--- NOTE | 2022-09-26 20:57 | Magnetic Resonance Report ---
Brain MRI WITHOUT CONTRAST HISTORY: Vision changes. Episode of aphasia. possible TIA/CVA TECHNIQUE: Multiplanar multisequence MRI of the brain was performed without the use of contrast. COMPARISON STUDY: Head CT 09/26/2022 FINDINGS: No areas of restricted diffusion to suggest an acute infarction. The midline structures are intact. Specifically, the corpus callosum demonstrates a normal volume. There is no mass, hematoma, midline shift. The ventricles and sulci are within normal limits. The major vascular flow-voids at th e skull base are well-maintained. The paranasal sinuses and mastoid air cells are clear. The orbits a re unremarkable. There is extensive patchy T2 hyperintensity seen throughout the white matter of the supratentorial and infratentorial brain. This is most pronounced within the periventricular locations . Although nonspecific this is highly suspicious for a demyelinating disease such as multiple scleros is. IMPRESSION: 1. No acute infarct or intracranial hemorrhage. 2. There is extensive patchy T2 hyperintensity seen throughout the white matter of the supratentorial and infratentorial brain. This is most pronounced within the periventricular locations. Although non specific this is highly suspicious for a demyelinating disease such as multiple sclerosis. Lyme's dis ease, vasculitis, or less likely migraines could also have a similar appearance. ACT 112: Negative or not required by law. Electronically signed by: Phillip Glez M.D. 09/26/2022 8:55 PM
[2022-09-26] MEDS ORDERED: FLUARIX QUADRIVALENT 0.5 ML SYR IM ONE (21:00)
--- NOTE | 2022-09-27 05:09 | Electrocardiogram Report ---
Test Reason : Blood Pressure : / mmHG Vent. Rate : 086 BPM Atrial Rate : 086 BPM P-R Int : 154 ms QRS Dur : 082 ms QT Int : 372 ms P-R-T Axes : 050 024 058 degrees QTc Int : 445 ms Normal sinus rhythm Normal ECG No previous ECGs available Confirmed by Ras Somers ([id number]) on 09/27/2022 5:08:57 AM Referred By: REFERRED SELF Confirmed By:Ras Somers
[2022-09-27 09:22] LABS: Basophils # (auto) 0.03 K/uL (0-0.2); Basophils % (auto) 0.8 %; Eosinophils # (auto) 0.08 K/uL (0-0.50); Eosinophils % (auto) 2.2 %; Hematocrit (blood only) 38.5 % (34.1-44.9); Immature Granulocytes # (auto) 0.01 K/uL (0.00-0.02); Immature Granulocytes % (auto) 0.3 %; Lymphocytes # (auto) 1.18 K/uL (1.2-3.4); Lymphocytes % (auto) 32.4 %; Mean Corpuscular Hemoglobin 30.5 pg (25.0-34.0); Mean Corpuscular Hgb Conc 33.8 g/dL (32.0-36.0); Mean Corpuscular Volume 90.4 fL (80.0-100.0); Mean Platelet Volume 10.8 fL (9.4-12.3); Monocytes # (auto) 0.27 K/uL (0.24-0.82); Monocytes % (auto) 7.4 %; Neutrophils # (auto) 2.07 K/uL (1.4-6.5); Neutrophils % (auto) 56.9 %; Platelet Count 211 K/uL (130-400); RDW Coefficient of Variation 13.2 % (11.5-14.5); RDW Standard Deviation 44.1 fL (36.4-46.3); Red Blood Count 4.26 M/uL (3.93-5.22); White Blood Count 3.64 K/ul (4.8-10.8)
[2022-09-27 09:55] LABS: BUN Creatinine Ratio 20.3 (10-20); Chol HDL Ratio 4.2 (0-5); Creatinine Clr Calc Pharmacy 126.7 ml/min; Est GFR (African American) 117.1 ml/min; Potassium 3.7 mmol/L (3.5-5.1)
[2022-09-27 10:53] LABS: Estimated Average Glucose 111 mg/dl; Hemoglobin A1C 5.5 % (4.5-5.6)
--- NOTE | 2022-09-27 13:56 | XCELERA ---
[id number]
--- NOTE | 2022-09-27 15:11 | Neurology Consultation ---
Date of Consultation September 27, 2022 Assessment & Plan (1) Visual disturbance: (2) Expressive aphasia: (3) Classic migraine with aura: (4) Demyelinating disease: Plan This patient had the onset of "squiggly lines" and other visual disturbances with a little bit of dysarthria and expressive aphasia only. She had a resolution of the symptoms by 40 minutes followed by a generalized nonspecific pressure headache. Overall, this is consistent with a classic migraine headache ( of which she has had in the past). On neurologic examination she is entirely within normal limits with no focal neurologic deficits, meningeal signs, or encephalopathy. CT angiography of the head and neck were unremarkable. MRI of the brain showed extensive ( for age) old white matter changes diffusely bilaterally. I believe given her history that this is vascular in nature. Risk factors for this include cigarette smoking and probably her Genetics given her mother's issues. ESR was 5. hemoglobin A1c was 5.5 and total cholesterol was elevated at 224. Triglycerides were 93. Recommendations: 1. initiate 81 mg aspirin tablet daily. 2. Control blood pressure as you are doing, aiming for a mean arterial pressure of 95-100. 3. Control cholesterol. She should be put on a statin. Although technically she could be a high-dose statin candidate, I would put her on a regular dose for now. 4. I see no need for additional neurologic testing or treatment changes at this time. 5. I Would like to follow up this patient in 3-4 weeks as an outpatient (with medical student Hilaria Ortega) Overall, I spent a total of 90 minutes with this case including review of records, review of MRI films, direct evaluation the patient at bedside, and discussion of the case and films with the patient at bedside, and Dr. Coto, including differential diagnosis and treatment options. History of Present Illness Reason for Consultation: patient is a 56-year-old, who I was asked to see at the request of Dr. Coto, for neurologic consultation regarding abnormal MRI of the brain, question demyelinating disease. Requesting Physician: Dr. Coto Attending Physician: Narendra Coto MD History of Present Illness this patient has a history of migraine headaches of a very intermittent nature, particularly over the last 15 years but she may have had them early in her life. They occur every few years or so only. They start out with some "squiggly" vision in her eyes with some tunnel vision lasting up to an hour followed by a headache which is bifrontal and radiates all over of a tight nature. There is no nausea or vomiting but there is photophobia and sonophobia. [id number]-[id number] medications can help. Her most recent migraines (Of significance that she can't recall) were 5 years ago and 8 years ago. This patient has had no episodes of weakness or numbness in her limbs, gait problems, vision loss in 1 eye, or any other symptoms that might suggest multiple sclerosis or other demyelinating diseases. She does have some joint pain but does not have any significant rheumatologic or immunologic diseases. The patient has some low back pain and some dyslipidemia. She was a former cigarette smoker for many years quitting about 10 years ago. Patient's mother had TIAs and strokes with dementia, high blood pressure, smoking, and diabetes. She age 76. The patient was in her usual state of health when around 1300 on September 26, while at work as usual, she had the onset of some blurry vision with squiggly lines particularly off to the right. She was not sure if it was 1 eye or both. She did not feel well and ended up trying to lay down in a dark place at work little later on her co-worker said that she was "pale" and was checking her for strokes. She had no motor deficits in her arms or legs and had no facial droop. She had a little bit of slurred speech at times and she had a little bit of word-finding difficulty at times. The vision issues lasted about 40 minutes followed by a bifrontal headache of a heavy nature. By the time she reached the emergency room at 1:58 p.m., the symptoms were gone. Temperature was 36.6, pulse 91 and regular, respiratory rate 18, blood pressure 151/77, and O2 saturation 98%. Her neurologic examination was normal. CBC, Chem profile, liver profile and urinalysis were unremarkable. Lyme antibody titers were negative. Chest x-ray showed some slight cardiomegaly but was otherwise unremarkable. CT scan of the head showed some old white matter changes but no acute changes. CT angiography of the head neck were unremarkable with no vascular anomalies or stenoses. Echocardiogram was unremarkable. MRI of the brain revealed extensive old small vessel ischemic disease with no acute stroke. I reviewed these films. Today, she has no vision issues but she does have a mild headache "all over". There is no nausea, vomiting, photophobia, or sonophobia. She has no speech or mentation problems and no weakness or numbness in her arms and legs. Her balance is good. Allergies Allergy/AdvReac Type Severity Reaction Status Date / Time No Known Drug Allergies Allergy Verified 02/19/22 14:47 Home Medications Medication Instructions Recorded Confirmed Type No Known Home Medications 09/26/22 09/26/22 History Patient History Medical History Abnormal mammogram Allergic rhinitis Atypical ductal hyperplasia of breast Chronic low back pain Classic migraine with aura Dense breasts Diverticulosis of colon Esophageal reflux Ganglion cyst of right foot History of basal cell cancer Low back pain Lumbar facet joint syndrome Schwannoma of nerve of lower extremity Surgical History H/O arthroscopy of left knee S/P section S/P colonoscopy February 2017 repeat 10yrs S/P dilation and curettage S/P oophorectomy left Family History Mother Hypertension Dementia Stroke syndrome Grandmother Ovarian cancer Diabetes Grandfather Acute myocardial infarction Brother Hyperthyroidism Sister Hypothyroidism Social History Smoking Status: Former smoker Tobacco Type: Cigarettes Second Hand Exposure: No; Hx Alcohol Use: No Hx Substance Use: No Preferred Language: Ecuadorean Communication Ability: Effective Tenoner Operator Required: No Beliefs That Will Affect Care: None marital status: Current Living Situation: Spouse current occupational status: employed current occupation: [employer] How many Children do You have: 1 Other Information That Helps Us Care for You: No Feels Safe at Home: Yes Safety Concerns: Feels Safe At This Time Childhood Exposure to Second-Hand Smoke: Yes caffeine: Yes (coffee, tea) Dental Care, Regularly: Yes Physical Activity Frequency: 5-6 Times per Week Seatbelt Use: always Sunscreen Use: Yes Assistive Devices: None Review of Systems Constitutional: no fever, no fatigue and no weakness Eyes: no diplopia, no eye pain and no worsening vision Ear, Nose, Mouth, Throat: no ear pain, no tinnitus, no hearing loss, no dizziness, no snoring, no hoarseness and no dysphagia Respiratory: no cough and no dyspnea Cardiovascular: no chest pain, no palpitations and no lightheadedness Gastrointestinal: no abdominal pain, no nausea and no vomiting Genitourinary: no dysuria, no urinary frequency and no urinary incontinence Musculoskeletal: no back pain, no neck pain, no radicular pain, no joint pain and no myalgia Integumentary: no rash and no lesions Neurologic: + headache(s); no gait abnormality, no localized weakness, no generalized weakness, no tingling, no numbness, no tremor(s), no abnormal movements, no abnormal speech, no confusion and no memory loss Psychiatric: no depression, no irritability, no anxiety, no difficulty concentrating, no confusion and no hallucinations Endocrine: no fatigue and no flushing Hematologic / Lymphatic: no easy bleeding and no easy bruising Allergy / Immunological: no urticaria and no problem reported Exam (Neuro) 2 Physical Exam: The patient is right-handed. The patient is awake, alert, and attentive. Speech is normal without any aphasia or dysarthria. The patient can name objects, repeat phrases, and has normal spontaneous speech. Mentation and thought processes are intact, with orientation to person, place and time, and normal fund of knowledge. Attention and concentration are normal. Mood and affect are normal and appropriate. General appearance and grooming are normal. Short and long-term memory are intact. Pupils are 4 mm bilaterally and reactive to light. Extraocular eye muscles are intact without nystagmus. Visual acuity and visual wheatley seem normal grossly to confrontation. There are no deficits to sensation in the face in all 3 distributions of the fifth cranial nerve bilaterally. Corneal reflexes are positive bilaterally. Facial strength and symmetry was normal bilaterally. Hearing seems normal bilaterally. Palate moves well without asymmetry. There is normal sternocleidomastoid and trapezius (shoulder shrug) strength bilaterally. Tongue is midline with good strength bilaterally. Neck has a full range of motion without discomfort. There are no cervical bruits bilaterally. There are no cranial or ocular bruits. Heart is without murmur. There is a regular rhythm and rate. Cervical, thoracic, and lumbar spine are nontender to palpation. Gait is narrow based, with good arm swing, turns, and stance. Balance is normal eyes open or closed. With outstretched arms there is no drift. There are no resting, postural, or action tremors. There is no ataxia with finger to nose testing. There is good facility in the hands. No other abnormal involuntary movements are noted. Motor strength is 5/5 diffusely in the arms bilaterally including deltoids, biceps, triceps, brachioradialis, wrist flexors and extensors, sewer, and intrinsic hand muscles. Motor strength is 5/5 diffusely in the legs bilaterally including hip flexors, quadriceps, hamstrings, gastrocnemius, tibialis anterior, tibialis posterior, and Peroneii muscles. Toe extensors are normal and there is good bulk in the extensor digitorum brevis muscles bilaterally. The limbs have good tone without rigidity or spasticity. There is no atrophy noted in the muscles. Muscle bulk is normal, there is no tenderness to palpation, no myotonia to percussion, and no fasciculations seen. Sensory examination is intact to touch and pin throughout all 4 limbs diffusely. Reflexes are 2/4 in the biceps, triceps, brachioradialis, quadriceps, and Achilles tendons bilaterally. There is no clonus bilaterally. Toes are downgoing with plantar stimulation bilaterally. Peripheral pulses are present and of normal quality distally in all 4 limbs. There is no peripheral edema noted in the limbs. Results & Data ([facility]) Vital Signs (Past 12 Hours) Vital Signs Temp Pulse Pulse Resp BP Pulse Ox O2 Del Method 09/27/22 11:21 36.6 C 78 18 140/84 96 Room Air 09/27/22 07:15 Room Air 09/27/22 07:54 36.7 C 68 18 139/84 99 09/27/22 07:18 89 PG Care Time/CCT Total # of Minutes Spent Total Time Spent with Patient: Total time spent is greater than 50% in coordination of care (as documented) at patient's floor/unit and/or counseling patient: Coding Level of Care Code 73739 Office/OBS Consult Lvl 5 Diagnoses Visual disturbance H53.9 Expressive aphasia R47.01 Classic migraine with aura G43.109 Demyelinating disease G37.9 Time Spent (min) 90
[2022-09-27] MEDS ORDERED: IBUPROFEN 200 MG TAB PO STA (15:46)
[2022-09-27] MEDS ORDERED: STROKE PATIENT DISCHARGE STA (15:55)
--- NOTE | 2022-09-27 15:57 | Discharge Summary ---
Date of Service September 27, 2022 Admission HPI Per Admitting Provider Gauri Nice is a 56-year-old female with past medical history significant for migraine headaches, chronic low back pain, allergic rhinitis, GERD who presents today as a stroke alert. 1 hour prior to arrival around 1 PM she was eating lunch when she had onset of palpitations and saw a right squiggly line through her right eye. She also has difficulty speaking and could not remember her home address or the names of her coworkers. She does not have any motor or sensory deficits, no difficulty with ambulation, no headache, nausea, or vomiting. She has a distant history of migraine headaches several years ago that presented similarly with a squiggly line in her vision, therefore she took several Advil pills to prevent headache from coming on. She also notes over the past 2 days after eating she had temporary episode of feeling like her heart was racing. Prior to arrival in the ED, her symptoms have resolved and she is back to baseline. She denies a history of strokes, but does have a history of migraines and a family history of stroke. She was seen by her PCP several months ago for palpitations, or an event monitor which did not reveal arrhythmia. In the past she was prescribed triptans for migraine prevention, however never required these as the migraines were an isolated incident have not recurred since then several years. Upon presentation to ED, she is moderately hypertensive 151/77, HR 91, otherwise vital signs within normal limits. Head CT does not show evidence of acute infarct or hemorrhage, there is moderate patchy periventricular white matter hypodensity noted which is greater than expected given her age, possibly representing microvascular ischemic change, Lyme disease, migraines, or demyelinating disease. Head and neck CTA unremarkable. Labs largely unrevealing Principal Diagnosis Migraine Discharge Exam Constitutional WD/WN, vitals as above ENMT external ear and nose normal, oropharynx normal Neck trachea midline, no thyromegaly Respiratory normal respiratory effort, lungs clear to auscultation Cardiovascular RRR, no murmur, no edema Gastrointestinal (Abdomen) normal bowel sounds, soft, nontender, no hepatosplenomegaly Musculoskeletal no cyanosis or clubbing, extremities motor strength 5/5 Skin no rashes, warm and dry Neurologic CN's II-XI intact bilaterally, moves all extremities and awake; no focal motor deficits and not confused Discharge Data Allergies Allergy/AdvReac Type Severity Reaction Status Date / Time No Known Drug Allergies Allergy Verified 02/19/22 14:47 Consultations 09/27/22 07:23 Consult Neurology Routine Ordered Studies 09/26/22 14:03 CT angio head w con Stat IMPRESSION: No central vessel occlusion. No intracranial aneurysm. CT angio neck with con Stat IMPRESSION: Unremarkable CT angiogram of the neck. CT head/brain wo con Stat Impression: 1. No acute infarct or intracranial hemorrhage. 2. Moderate patchy periventricular white matter hypodensity is noted. This is nonspecific but appears greater than expected for age. This could represent mi crovascular ischemic change, Lyme disease, migraines, or a demyelinating disease. 09/26/22 17:05 MR brain wo con Routine IMPRESSION: 1. No acute infarct or intracranial hemorrhage. 2. There is extensive patchy T2 hyperintensity seen throughout the white matter of the supratentorial and infratentorial brain. This is most pronounced within the periventricular locations. Although nonspecific this is highly suspicious for a demyelinating disease such as multiple sclerosis. Lyme's disease, vasculitis, or less likely migraines could also have a similar appearance. Hospital Course (1) Stroke-like symptoms: Gauri Ibarra is a 56 year old female observed at [facility] from September 26 to 2021 due to vision disturbance and difficulty speaking with a generalized headache. On review by neurology with negative brain MRI for stroke this was suspected to be due to a classic migraine headache. Due to extensive white matter disease on your brain MRI concerning for small vessel plaque disease, neurology recommended to start aspirin 81 mg daily and start on a moderate dose statin. She should follow-up with neurology in 3 to 4 weeks. (2) Chronic low back pain: (3) Allergic rhinitis: Total Time Total Time Spent Total Time Spent (In Minutes): 40 Discharge Plan Discharge Items Patient Disposition: Home - Self-Care Reason For Visit: TRANSIENT VISION, SPEECH DIFFICULTY Discharge Diagnosis: Migraine Activity: Resume your previous activity Non-emergency contact: Primary Care Provider Call non-emergency contact if: you have any medication questions and your symptoms worsen Follow-up/Referrals: Alfa Chang MD [Physician] - (3-4 week follow up migraine, small vessel disease) Raquel Smith MD [Primary Care Provider] - Diet: Heart Healthy Addtl Attending Provider Instructions: You were observed at [facility] from September 26 to 2021 due to vision disturbance and difficulty speaking with a generalized headache. On review by neurology with negative brain MRI for stroke this was suspected to be due to a classic migraine headache. Due to extensive white matter disease on your brain MRI concerning for small vessel plaque disease, neurology recommended to start aspirin 81 mg daily and start on a moderate dose statin. Please follow-up with neurology in 3 to 4 weeks. Pending Studies at Discharge: No Stand-Alone Forms: My [facility], Smoking Cessation, Medications to Prevent Stroke Medications and DC Order Prescriptions: New aspirin 81 mg tablet,delayed release (DR/EC) 81 mg PO DAILY Qty: 30 0RF atorvastatin 20 mg tablet 20 mg PO DAILY Qty: 30 0RF Discharge Orders: Discharge Order (Routine); Ordered 09/27/22 Ordered By: Narendra Coto Admission Data Admit Date/Time: 09/26/22 15:29 Attending Provider: Narendra Coto Admit Provider: Apollo Lagos Primary Care Provider: Raquel Smith Other Providers: Alfa Chang Other Interventions: Discharge Summary Assessment (RN) Last Done: 09/27/22 16:01 Coding Level of Care Code 47684 OBS Care - Discharge Diagnoses Stroke-like symptoms R29.90 Chronic low back pain M54.5; G89.29 Allergic rhinitis J30.9
== END 2022-09-27 17:02 | disposition home or self-care (01) ==
LOC: ED 13:55 → 2N 13:55 → SUATTDRO 15:29 → 2N 16:34